=== PATIENT | male | born 1980 | race Two or more races ===

== ENCOUNTER 2019-10-09 16:32 | Emergency (ER) | payer OTHER ==
[2019-10-09 16:37] VITALS: BP 112/82
--- NOTE | 2019-10-09 16:47 | ER Document Report ---
ED Medical Screen (RME) - General Chief Complaint: Dog Bite Stated Complaint: DOG BITE/RIGHT ARM Time Seen by Provider: 10/09/19 16:43 Mode of Arrival: Ambulatory Information source: Patient Notes: 39-year-old male presented to ED for dog bite to the right arm. 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 He states his boss called animal control and animal control and they stated that the dog's shots were not up-to-date. He states that the dog is just a very young maybe 2-month-old pitbull dog. Patient is alert oriented respirations regular nonlabored speaking in full sentences. I have greeted and performed a rapid initial assessment of this patient. A comprehensive ED assessment and evaluation of the patient, analysis of test results and completion of medical decision making process will be conducted by an additional ED providers. - Related Data Allergies/Adverse Reactions: Penicillins Allergy (Verified 10/09/19 16:40) Physical Exam - Vital signs Vitals: Temp Pulse Resp BP Pulse Ox 98.2 F 88 16 112/82 97 10/09/19 16:36 10/09/19 16:36 10/09/19 16:36 10/09/19 16:36 10/09/19 16:36 Course - Vital Signs Vital signs: Temp Pulse Resp BP Pulse Ox 98.2 F 88 16 112/82 97 10/09/19 16:36 10/09/19 16:36 10/09/19 16:36 10/09/19 16:36 10/09/19 16:36
--- NOTE | 2019-10-09 18:25 | ER Document Report ---
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 Wound is on the inner aspect of the upper arm dominant right upper extremity. Dog is a small puppy who is not yet been immunized but the animal has been located by [employer] and will be confined by the partner marketing intern. Bite was unprovoked. Dog does not appear irritable. Patient reports he has had a tetanus booster within the last 5 years. He takes no regular medications. Has history of allergy to penicillin. - Related Data Allergies/Adverse Reactions: Penicillins Allergy (Verified 10/09/19 16:40) Past Medical History - General Information source: Patient - Social History Smoking Status: Never Smoker Chew tobacco use (# tins/day): No Frequency of alcohol use: None Drug Abuse: None Family History: Reviewed & Not Pertinent Patient has homicidal ideation: No Review of Systems - Review of Systems Notes: Constitutional: Negative for fever. HENT: Negative for sore throat. Eyes: Negative for visual changes. Cardiovascular: Negative for chest pain. Respiratory: Negative for shortness of breath. Gastrointestinal: Negative for abdominal pain, vomiting or diarrhea. Genitourinary: Negative for dysuria. Musculoskeletal: Negative for back pain. Skin: Negative for rash. Neurological: Negative for headaches, weakness or numbness. 10 point ROS negative except as marked above and in HPI. Physical Exam - Vital signs Vitals: Temp Pulse Resp BP Pulse Ox 98.2 F 88 16 112/82 97 10/09/19 16:36 10/09/19 16:36 10/09/19 16:36 10/09/19 16:36 10/09/19 16:36 - Notes Notes: GENERAL: Somewhat obese male approximately stated age appearing in no acute distress. SKIN: Good turgor no rashes. HEAD: Normocephalic atraumatic. EYES: PERRLA. EOMI. Conjunctivae and sclerae clear. NECK: Supple. No masses or thyromegaly. No adenopathy. Carotids 2+ without bruits. No JVD. BACK: Symmetrical without tenderness. CHEST: Respirations unlabored. Breath sounds clear and symmetrical. HEART: Regular rhythm. No murmur gallop or rub. ABDOMEN: Soft nontender without masses, organomegaly or rebound. Bowel sounds normally active. No bruits. EXTREMITIES: Patient has 2 small puncture wounds over the distal medial aspect of the right upper arm. No active bleeding. No drainage. Mild bruising surrounding the area with minimal tenderness. No edema. No calf tenderness. Cap refill less than 1.5 seconds. Dorsalis pedis and posterior tibial pulses 3+ and symmetrical. NEUROLOGICAL: Alert and oriented x3. Nonfocal. PSYCHIATRIC: Appropriate affect. Course - Re-evaluation Re-evalutation: 10/09/19 18:22 The wound will be cleaned, irrigated and dressed in a sterile fashion. Ice pack applied. Animal control has been contacted and the animal has been quarantined. Animal control will provide follow-up. He does not appear to warrant rabies vaccine at this time. He may return here as needed. He is going to be started on clindamycin and advised to follow-up with PMD. - Vital Signs Vital signs: Temp Pulse Resp BP Pulse Ox 98.2 F 88 16 112/82 97 10/09/19 16:41 10/09/19 16:36 10/09/19 16:36 10/09/19 16:36 10/09/19 16:36 Discharge - Discharge Clinical Impression: Dog bite of right upper extremity Qualifiers: Encounter type: initial encounter Qualified Code(s): S41.151A - Open bite of right upper arm, initial encounter; W54.0XXA - Bitten by dog, initial encounter Condition: Stable Disposition: HOME, SELF-CARE Additional Instructions: Animal Bites Animal bites are often heavily contaminated with bacteria. In spite of thorough cleansing and proper treatment, these wounds frequently become infected. Bite wounds of the hands are especially prone to complications. Bites are dressed, if possible. Large wounds may require suturing after internal cleansing. Because of infection risk, some large wounds must remain unstitched. Your doctor is trained to advise you on the best treatment for your bite. Call the doctor at once if the wound becomes red, swollen, warm, increasingly painful, or if it begins to drain. Danger signs also include red streaks up the involved extremity, swollen glands in the groin or under the arm, or fever and chills. The risk of rabies from domestic animals is very low. Bats, sick animals, and wild animals may expose you to rabies. The physician, or the health department, will inform you if you will need to receive the rabies vaccine. Clean the wound with mild soap and water daily and apply bacitracin ointment at each time of dressing change. Keep a clean dressing over this. Take Tylenol as needed for pain. You may also apply ice packs as needed for swelling and pain. Follow-up with your primary care doctor return to the emergency department for recheck of this wound and 2 to 3 days. Return here as needed for new or worsening symptoms: Pain that is worsening or unimproved Uncontrolled vomiting High fever or shaking chills Overall worsening Prescriptions: Clindamycin HCl 300 mg PO TID #30 capsule Referrals: [facility] [Primary Care Provider] - Follow up as needed
== END 2019-10-09 18:35 | disposition home or self-care (01) ==
LOC: ER 16:32
DX: S41.151A Open bite of right upper arm, initial encounter (principal); W54.0XXA Bitten by dog, initial encounter; Y99.0 Civilian activity done for income or pay; Z88.0 Allergy status to penicillin; E66.9 Obesity, unspecified
CPT/HCPCS: 99283

== ENCOUNTER 2019-11-06 08:42 | Observation (INO) | payer OTHER ==
--- NOTE | 2019-11-06 09:06 | ER Document Report ---
ED Medical Screen (RME) - General Chief Complaint: Abdominal Pain Stated Complaint: ABDOMINAL PAIN Time Seen by Provider: 11/06/19 09:03 Primary Care Provider: LEONARDO [facility]OPEZ [Primary Care Provider] - Follow up as needed Mode of Arrival: Ambulatory Information source: Patient Notes: 39-year-old presents to ED for complaint of abdominal pain severe for the last several weeks. He states about a week ago he went to an urgent care and they told him to get some mag citrate from the store. He states he did feel better for couple days intimating had diarrhea so he started taking Kaopectate and now is bound up again. He is alert oriented respirations regular nonlabored speaking in full sentences. He states while he was in the he did have some high blood pressure and cholesterol but he does not have those now. He is alert oriented respirations regular and unlabored. I have greeted and performed a rapid initial assessment of this patient. A comprehensive ED assessment and evaluation of the patient, analysis of test results and completion of medical decision making process will be conducted by an additional ED providers. - Related Data Allergies/Adverse Reactions: Penicillins Allergy (Verified 10/09/19 16:40) Doctor's Discharge - Discharge Referrals: LEONARDO LOPEZ [Primary Care Provider] - Follow up as needed
[2019-11-06 09:42] LABS: APPEARANCE,URINE SLIGHTLY-CLOUDY; BILIRUBIN,URINE NEGATIVE (NEGATIVE); COLOR,URINE AMBER; GLUCOSE, URINE NEGATIVE (NEGATIVE); KETONES,URINE 20 mg/dL (NEGATIVE); LEUKOCYTE ESTERASE,URINE NEGATIVE (NEGATIVE); NITRITE,URINE NEGATIVE (NEGATIVE); PROTEIN,URINE 30 mg/dL (NEGATIVE); URINE SPECIFIC GRAVITY 1.034
--- NOTE | 2019-11-06 09:42 | RADIOLOGY REPORT (SQ) ---
EXAM DESCRIPTION: ACUTE ABDOMEN SERIES IMAGES COMPLETED DATE/TIME: 11/06/2019 8:25 am REASON FOR STUDY: Epigastric/abdominal pain constipation/diarrhea COMPARISON: None. NUMBER OF VIEWS: Three views. TECHNIQUE: Frontal chest, supine abdomen and upright/decubitus abdomen radiographic images acquired. LIMITATIONS: None. FINDINGS: CHEST: Lungs clear of infiltrates. FREE AIR: None. No abnormal gas collections. BOWEL GAS PATTERN: Normal stool burden. Nonobstructive pattern. No dilated loops or air fluid levels . CALCIFICATIONS: No suspicious calcifications. HARDWARE: None in the abdomen. SOFT TISSUES: No gross mass or suggestion of organomegaly. BONES: No acute fracture. No worrisome bone lesions. OTHER: No other significant finding. IMPRESSION: No acute cardiopulmonary disease. Nonobstructive bowel gas pattern. TECHNICAL DOCUMENTATION: JOB ID: [id number] 2010 [employer]- All Rights Reserved Reading location - IP/workstation name: [email or web address]
[2019-11-06 09:48] LABS: ABSOLUTE LYMPHOCYTES (AUTO) 1.7 10^3/uL (0.5-4.7); ABSOLUTE MONOCYTES (AUTO) 1.2 10^3/uL (0.1-1.4); ABSOLUTE NEUT (AUTO) 15.5 10^3/uL (1.7-8.2); BASOPHILS % (AUTO) 0.2 % (0-2); EOSINOPHILS % (AUTO) 0.2 % (0-6); HEMATOCRIT 48.7 % (37.9-51.0); HEMOGLOBIN 16.4 g/dL (13.5-17.0); LYMPHOCYTES % (AUTO) 9.3 % (13-45); MEAN CORPUSCULAR HEMOGLOBIN 29.7 pg (27.0-33.4); MEAN CORPUSCULAR HGB CONC 33.8 g/dL (32.0-36.0); MEAN CORPUSCULAR VOLUME 88 fl (80-97); MONOCYTES % (AUTO) 6.3 % (3-13); PLATELET COUNT 291 10^3/uL (150-450); RED BLOOD COUNT 5.54 10^6/uL (4.35-5.55); RED CELL DISTRIBUTION WIDTH 13.2 % (11.5-14.0); TOTAL CELLS COUNTED % (AUTO) 100 %; WHITE BLOOD COUNT 18.5 10^3/uL (4.0-10.5)
[2019-11-06 10:06] LABS: ALKALINE PHOSPHATASE 73 U/L (38-126); ANION GAP 7 (5-19); ASPARTATE AMINO TRANSFERASE 36 U/L (17-59); BILIRUBIN,TOTAL 0.9 mg/dL (0.2-1.3); BLOOD UREA NITROGEN 13 mg/dL (7-20); CARBON DIOXIDE 27 mmol/L (22-30); CHLORIDE 102 mmol/L (98-107); GLUCOSE 115 mg/dL (75-110); TOTAL PROTEIN 6.9 g/dL (6.3-8.2)
[2019-11-06] MEDS ORDERED: NORMAL SALINE 1000 ML 1,000 ML IV ONE ×2 (11:20→13:20)
[2019-11-06] MEDS ORDERED: MORPHINE SULFATE 10 MG/ML INJ IV ONE (11:21)
--- NOTE | 2019-11-06 11:22 | ER Document Report ---
ED GI/ - General Chief Complaint: Abdominal Pain Stated Complaint: ABDOMINAL PAIN Time Seen by Provider: 11/06/19 09:03 Mode of Arrival: Ambulatory Information source: Patient Notes: Patient presents complaining of upper abdominal pain for the past 2 weeks. Patient states that the pain has started to migrate to the left lower quadrant as well. Patient states that he had gone to an urgent care last week for his symptoms and was given mag citrate to treat for possible constipation. Patient states that he has had diarrhea since that visit. Patient states that he has not had any blood in his stool. Patient denies any fever. Patient states pain has started to worsen over the past several days. - HPI Patient complains to provider of: Abdominal pain, Diarrhea. No: Vomiting Onset: Other - 2 weeks Timing/Duration: Persistent Quality of pain: Cramping Pain Level: 4 Location: Other - Upper abdomen, left lower quadrant Associated symptoms: Diarrhea. 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 denies: Fever EENT: No symptoms reported Cardiovascular: No symptoms reported Respiratory: No symptoms reported. denies: Cough, Short of breath Gastrointestinal: Abdominal pain, Diarrhea. denies: Nausea, Vomiting, Black stools, Rectal bleeding Genitourinary: No symptoms reported. denies: Dysuria Male Genitourinary: No symptoms reported Musculoskeletal: No symptoms reported. denies: Back pain Skin: No symptoms reported Hematologic/Lymphatic: No symptoms reported Neurological/Psychological: No symptoms reported Physical Exam - Vital signs Vitals: Temp Pulse Resp BP Pulse Ox 98.0 F 77 20 120/98 H 99 11/06/19 09:00 11/06/19 09:00 11/06/19 09:00 11/06/19 09:00 11/06/19 09:00 - General General appearance: Appears well, Alert In distress: None - HEENT Head: Normocephalic, Atraumatic Eyes: Normal Conjunctiva: Normal Nasal: Normal Mouth/Lips: Normal Neck: Normal, Supple. No: Lymphadenopathy - Respiratory Respiratory status: No respiratory distress Chest status: Nontender Breath sounds: Normal. No: Rales, Rhonchi, Stridor Chest palpation: Normal - Cardiovascular Rhythm: Regular Heart sounds: S1 appreciated, S2 appreciated - Abdominal Inspection: Normal Distension: No distension Bowel sounds: Normal Tenderness: Tender - epigastric. No: Guarding Organomegaly: No organomegaly - Back Back: Normal, Nontender. No: CVA tenderness - Extremities General upper extremity: Normal inspection, Normal ROM General lower extremity: Normal inspection, Normal ROM - Neurological Neuro grossly intact: Yes Cognition: Normal Alisha Coma Scale Eye Opening: Spontaneous [place] Coma Scale Verbal: Oriented [place] Coma Scale Motor: Obeys Commands Alisha Coma Scale Total: 15 - Psychological Associated symptoms: Normal affect, Normal mood - Skin Skin Temperature: Warm Skin Moisture: Dry Skin Color: Normal Course - Re-evaluation Re-evalutation: 11/06/19 13:[address] scan report reviewed, patient with evidence of pancolonic wall thickening with mild stranding worrisome for possible infectious or inflammatory colitis. 11/06/19 13:[address] Infante who advises starting IV Cipro and Flagyl and consulted with hospitalist for admission. Patient reports 40 pound weight loss in July of this year. Patient denies any family history of any type of inflammatory bowel disease. Patient denies any previous history of colitis or IBD. Patient does state that he was on antibiotics after a dog bite last month. Will obtain stool specimen for additional testing. 11/06/19 14:[address] Perera who does agree to accept patient to the medical floor at this time. - Vital Signs Vital signs: Temp Pulse Resp BP Pulse Ox 98.0 F 77 18 117/89 H 100 11/06/19 14:00 11/06/19 14:00 11/06/19 14:00 11/06/19 14:00 11/06/19 14:00 - Laboratory Result Diagrams: 11/06/19 09:30 11/06/19 09:30 Laboratory results interpreted by me: 11/06/19 11/06/19 11/06/19 09:15 09:30 09:30 WBC 18.5 H Lymph % (Auto) 9.3 L Absolute Neuts (auto) 15.5 H Seg Neutrophils % 84.0 H Sodium 135.7 L Glucose 115 H Urine Protein 30 H Urine Ketones 20 H Urine Urobilinogen 2.0 H 11/06/19 14:25 Labs- All tests 24 hr 11/06/19 11/06/19 11/06/19 09:15 09:30 09:30 WBC 18.5 H RBC 5.54 Hgb 16.4 Hct 48.7 MCV 88 MCH 29.7 MCHC 33.8 RDW 13.2 Plt Count 291 Lymph % (Auto) 9.3 L [place] % (Auto) 6.3 Eos % (Auto) 0.2 Baso % (Auto) 0.2 Absolute Neuts (auto) 15.5 H Absolute Lymphs (auto) 1.7 Absolute Monos (auto) 1.2 Absolute Eos (auto) 0.0 Absolute Basos (auto) 0.0 Seg Neutrophils % 84.0 H Sodium 135.7 L Potassium 4.0 Chloride 102 Carbon Dioxide 27 Anion Gap 7 BUN 13 Creatinine 0.84 Est GFR ( Amer) > 60 Est GFR (MDRD) Non-Af > 60 Glucose 115 H Calcium 9.0 Total Bilirubin 0.9 Direct Bilirubin 0.0 Neonat Total Bilirubin Not Reportable Neonat Direct Bilirubin Not Reportable Neonat Indirect Bili Not Reportable AST 36 ALT 46 Alkaline Phosphatase 73 Total Protein 6.9 Albumin 4.0 Lipase Urine Color KYLE Urine Appearance SLIGHTLY-CLOUDY Urine pH 5.0 Ur Specific [place] 1.034 Urine Protein 30 H Urine Glucose (UA) NEGATIVE Urine Ketones 20 H Urine Blood NEGATIVE Urine Nitrite NEGATIVE Urine Bilirubin NEGATIVE Urine Urobilinogen 2.0 H Ur Leukocyte Esterase NEGATIVE Urine WBC (Auto) 2 Urine RBC (Auto) 1 Urine Mucus (Auto) MANY Urine Ascorbic Acid NEGATIVE 11/06/19 09:30 WBC RBC Hgb Hct MCV MCH MCHC RDW Plt Count Lymph % (Auto) [place] % (Auto) Eos % (Auto) Baso % (Auto) Absolute Neuts (auto) Absolute Lymphs (auto) Absolute Monos (auto) Absolute Eos (auto) Absolute Basos (auto) Seg Neutrophils % Sodium Potassium Chloride Carbon Dioxide Anion Gap BUN Creatinine Est GFR ( Amer) Est GFR (MDRD) Non-Af Glucose Calcium Total Bilirubin Direct Bilirubin Neonat Total Bilirubin Neonat Direct Bilirubin Neonat Indirect Bili AST ALT Alkaline Phosphatase Total Protein Albumin Lipase 59.1 Urine Color Urine Appearance Urine pH Ur Specific [place] Urine Protein Urine Glucose (UA) Urine Ketones Urine Blood Urine Nitrite Urine Bilirubin Urine Urobilinogen Ur Leukocyte Esterase Urine WBC (Auto) Urine RBC (Auto) Urine Mucus (Auto) Urine Ascorbic Acid - Diagnostic Test Radiology reviewed: Reports reviewed Discharge - Discharge Clinical Impression: Colitis, Weight loss Abdominal pain Qualifiers: Abdominal location: generalized Qualified Code(s): R10.84 - Generalized abdominal pain Condition: Stable Disposition: ADMITTED INPATIENT Admitting Provider: Dilma (Hospitalist) Unit Admitted: Medical Floor
--- NOTE | 2019-11-06 12:49 | RADIOLOGY REPORT (SQ) ---
EXAM DESCRIPTION: CT ABD/PELVIS WITH IV ONLY IMAGES COMPLETED DATE/TIME: 11/06/2019 12:35 pm REASON FOR STUDY: upper abd pain COMPARISON: None. TECHNIQUE: CT scan of the abdomen and pelvis performed using helical scanning technique with dynamic intravenous contrast injection. No oral contrast. Images reviewed with lung, soft tissue, and bone windows. Reconstructed coronal and sagittal MPR images reviewed. Delayed images for evaluation of the urinary system also acquired. All images stored on PACS. All CT scanners at this facility use dose modulation, iterative reconstruction, and/or weight based d osing when appropriate to reduce radiation dose to as low as reasonably achievable (ALARA). [facility]: Dose Right [facility]: CareDose [facility]: Dose Right [facility]: Teradose 4D [facility]: Zinwave CONTRAST TYPE AND DOSE: Contrast/concentration: Isovue 350.00 mg/ml; Total Contrast Delivered: 88.0 ml; Total Saline Delivered: 70.0 ml RENAL FUNCTION: GFR > 60. RADIATION DOSE: CT Rad equipment meets quality standard of care and radiation dose reduction techniq ues were employed. CTDIvol: 5.7 - 7.9 mGy. DLP: 722 mGy-cm. LIMITATIONS: None. FINDINGS: LOWER CHEST: No abnormality LIVER: The morphology of the liver is noncirrhotic. The portal veins are patent. There is no hepati c mass. SPLEEN: No splenomegaly or splenic mass. There is a 7 mm splenule anterior to the spleen. PANCREAS: No acute abnormality of the pancreas. GALLBLADDER: No abnormality that is apparent on CT. ADRENAL GLANDS: No mass or asymmetry. RIGHT KIDNEY AND URETER: No solid masses. No calcifications. No hydronephrosis or hydroureter. LEFT KIDNEY AND URETER: No solid masses. No calcifications. No hydronephrosis or hydroureter. AORTA AND VESSELS: No aneurysm or dissection of the abdominal aorta. RETROPERITONEUM: No retroperitoneal adenopathy, hemorrhage or mass. BOWEL AND PERITONEAL CAVITY: Pancolonic wall thickening associated with mild stranding of the pericol onic fat and engorgement of the vasa recta. There is no obstruction, pneumatosis free intraperitonea l fluid or mesenteric/ omental inflammation. APPENDIX: Normal. PELVIS: No abnormality. ABDOMINAL WALL: No mass or hernia. BONES: No fracture or osseous lesion. OTHER: No other finding. IMPRESSION: 1. Muse colonic wall thickening associated with mild stranding of the pericolonic fat and engorgement of the vasa recta. The findings is nonspecific and could represent an infectious, infla mmatory or ischemic colitis. 2. No other intra-abdominal abnormality. TECHNICAL DOCUMENTATION: JOB ID: [id number] Quality ID # [id number]: Final reports with documentation of one or more dose reduction techniques (e.g., Au tomated exposure control, adjustment of the mA and/or kV according to patient size, use of iterative reconstruction technique) 2010 [employer]- All Rights Reserved Reading location - IP/workstation name: [email or web address]-
[2019-11-06] MEDS ORDERED: CIPROFLOXACIN 400 MG/D5W RTU 400 MG/200 ML RTUPB IV ONE (13:31)
--- NOTE | 2019-11-06 13:52 | ER Document Report ---
Doctor's Note Notes: 11/06/19 13:49 I was requested to see this patient by the midlevel provider. 39-year-old male with several weeks history of diffuse abdominal cramping and loss of appetite. He is also had some watery diarrhea with no blood or mucus reported. No travel outside the area. No fever or chills. He has lost almost 40 pounds of weight since 3 months ago. He denies any family history of GI cancer or inflammatory bowel disease. He notes that about 1 month ago he briefly took Augmentin after he was bitten by dog. Patient is afebrile hemodynamically stable. He is mildly tender over the epigastrium and left upper and left lower quadrants without masses or rebound. White count is 18,000. CT shows diffuse colitis. I recommend consideration of admission, stool culture. Stool for C. difficile should also be obtained. He reports penicillin allergy and is therefore been given Cipro and Flagyl IV. Consultation with GI or general surgery will also be needed for colonoscopy.
[2019-11-06] MEDS ORDERED: METRONIDAZOLE 500 MG/NS RTU 500 MG/100 ML RTUPB IV ONE (14:00)
[2019-11-06] MEDS ORDERED: ACETAMINOPHEN 325 MG TABLET PO PRN (15:32)
[2019-11-06] MEDS ORDERED: PROMETHAZINE HCL INJ 25 MG/1 ML VIAL IV PRN (15:32)
[2019-11-06] MEDS ORDERED: MAG HYDROX/AL HYDROX/SIMETH SUSP 30 ML UDCUP PO PRN (15:32)
[2019-11-06] MEDS ORDERED: TEMAZEPAM 15 MG CAPSULE PO PRN (15:32)
[2019-11-06] MEDS ORDERED: OXYCODONE-ACETAMINOPHEN 5-325 MG TABLET PO PRN (15:32)
--- NOTE | 2019-11-06 15:48 | PDOC H&P ---
History of Present Illness Admission Date/PCP: 11/06/19 15:06 [facility] Patient complains of: Patient has been experiencing crampy abdominal pain. He has had diarrhea for 2 weeks and experienced unintentional weight loss. History of Present Illness: ERNIE SHORT is a 39 year old male with no significant past medical history who presents with abdominal pain and diarrhea. The patient is otherwise healthy. 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 He did receive a dog bite approximately 4 weeks ago. He was given clindamycin 300 mg and was experiencing some stomach discomfort and he did stop the medication early. There is no adverse effects and his wound is healed completely. Approximately 2 weeks ago he began having some abdominal discomfort. He went to a walk-in clinic and was told that it was constipation. He was given some laxatives and sent home. He states that his bowels did in fact respond to laxatives however for the last 2 weeks he has been having ongoing crampy pain and profuse diarrhea. It was originally normal in color and now is a greenish color and basically liquid. He does not think he has been drinking enough water. He denies having fever or chills. He did reports that in addition to the cramping he was having diaphoresis episodes. He did not report that there was any blood in his stool but he was having urgency. He does report weight loss. 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 He did not feel poorly at all until 2 weeks ago. In the emergency department he was afebrile with normal blood pressure. Normal oxygen saturation on room air. He is not tachycardic. White blood cell count is elevated with a left shift. Serum chemistries reveal serum sodium just under the lower limit of normal. No other clinically significant abnormalities. He is having ongoing liquid stool and crampy pain. He is experiencing abdominal tenderness mostly focused in the epigastric area. Imaging reveals pancolonic wall thickening with mild stranding in the pericolonic fat. Stool has been ordered for C. difficile, Gram stain and culture as well as white blood cells. He has received a dose of metronidazole and ciprofloxacin. He will be admitted to the hospitalist service. He will receive IV fluids. In addition to continuing the ciprofloxacin and metronidazole I have added oral vancomycin until results of the C. difficile tests are available. If these are negative I will discontinue the vancomycin. At this point I do not feel there is an acute need for surgical evaluation. Past Medical History Past Medical History: No significant past medical history except the dog bite Traumatic Medical History: Reports: Other - Dog bite 1 month ago Past Surgical History Past Surgical History: Reports: None Social History Information Source: Patient, [facility] Records Lives with: Family Smoking Status: Former Smoker - Stop smoking when discharged from the [facility] in 2017 Electronic Cigarette use?: No Frequency of Alcohol Use: None Hx Recreational Drug Use: No Hx Prescription Drug Abuse: No - Advance Directive Resuscitation Status: Full Code Surrogate healthcare decision maker:: The patient's is the medical decision maker in the event that the patient is incapacitated Family History Family History: Reviewed & Not Pertinent, DM Parental Family History Reviewed: Yes Children Family History Reviewed: Yes Sibling(s) Family History Reviewed.: Yes Medication/Allergy Home Medications: Bismuth Subsalicylate [Kaopectate] 262 mg PO BIDP PRN 11/06/19 Allergies/Adverse Reactions: Penicillins Allergy (Verified 11/06/19 09:05) Review of Systems All systems: reviewed and no additional remarkable complaints except as stated Constitutional: PRESENT: anorexia - Decreased appetite, other - Diaphoretic episodes Gastrointestinal: PRESENT: abdominal pain, diarrhea Physical Exam Vital Signs: Temp Pulse Resp BP Pulse Ox 98.0 F 77 20 120/98 H 99 11/06/19 09:00 11/06/19 09:00 11/06/19 09:00 11/06/19 09:00 11/06/19 09:00 Intake & Output 11/05/19 11/06/19 11/07/19 06:59 06:59 06:59 Intake Total 2100 Balance 2100 Weight 77.2 kg General appearance: PRESENT: cooperative, mild distress - Mild to moderate distress, well-developed, well-nourished Head exam: PRESENT: atraumatic, normocephalic Eye exam: PRESENT: conjunctiva pink, EOMI, PERRLA. ABSENT: nystagmus, per iorbital swelling, scleral icterus Ear exam: PRESENT: normal external ear exam. ABSENT: bleeding, drainage Mouth exam: PRESENT: dry mucosa, tongue midline Teeth exam: ABSENT: poor dentation Throat exam: ABSENT: tonsillar erythema, tonsillar exudate Neck exam: PRESENT: full ROM. ABSENT: carotid bruit, JVD, lymphadenopathy Respiratory exam: PRESENT: clear to auscultation ashok, symmetrical, unlabored. ABSENT: accessory muscle use, prolonged expiratory phas, rales, rhonchi, tachypnea, wheezes Cardiovascular exam: PRESENT: RRR, +S1, +S2. ABSENT: diastolic murmur, irregular rhythm, systolic murmur, tachycardia Pulses: PRESENT: normal radial pulses, normal dorsalis pedis pul GI/Abdominal exam: PRESENT: distended, guarding, hypoactive bowel sounds, soft, tenderness - Mild tenderness in the upper abdomen to the epigastric area. ABSENT: mass Rectal exam: PRESENT: deferred Gentrourinary exam: ABSENT: indwelling catheter Extremities exam: PRESENT: full ROM. ABSENT: joint swelling, pedal edema Musculoskeletal exam: PRESENT: ambulatory, full ROM, normal inspection. ABSENT: deformity Neurological exam: PRESENT: alert, awake, oriented to person, oriented to place, oriented to time, oriented to situation, CN II-XII grossly intact. ABSENT: a ltered, motor sensory deficit Psychiatric exam: PRESENT: appropriate affect. ABSENT: agitated, anxious Focused psych exam: ABSENT: delusional, paranoid, restlessness Skin exam: PRESENT: normal color, warm. ABSENT: cyanosis, erythema, rash Results Laboratory Results: 11/06/19 09:30 11/06/19 09:30 11/06/19 11/06/19 11/06/19 09:15 09:30 09:30 WBC 18.5 H RBC 5.54 Hgb 16.4 Hct 48.7 MCV 88 MCH 29.7 MCHC 33.8 RDW 13.2 Plt Count 291 Seg Neutrophils % 84.0 H Sodium 135.7 L Potassium 4.0 Chloride 102 Carbon Dioxide 27 Anion Gap 7 BUN 13 Creatinine 0.84 Est GFR ( Amer) > 60 Glucose 115 H Calcium 9.0 Total Bilirubin 0.9 AST 36 Alkaline Phosphatase 73 Total Protein 6.9 Albumin 4.0 Lipase Urine Color KYLE Urine Appearance SLIGHTLY-CLOUDY Urine pH 5.0 Ur Specific [place] 1.034 Urine Protein 30 H Urine Glucose (UA) NEGATIVE Urine Ketones 20 H Urine Blood NEGATIVE Urine Nitrite NEGATIVE Ur Leukocyte Esterase NEGATIVE Urine WBC (Auto) 2 Urine RBC (Auto) 1 11/06/19 09:30 WBC RBC Hgb Hct MCV MCH MCHC RDW Plt Count Seg Neutrophils % Sodium Potassium Chloride Carbon Dioxide Anion Gap BUN Creatinine Est GFR ( Amer) Glucose Calcium Total Bilirubin AST Alkaline Phosphatase Total Protein Albumin Lipase 59.1 Urine Color Urine Appearance Urine pH Ur Specific [place] Urine Protein Urine Glucose (UA) Urine Ketones Urine Blood Urine Nitrite Ur Leukocyte Esterase Urine WBC (Auto) Urine RBC (Auto) Impressions: Acute Abdomen Series 11/06/19 09:06 IMPRESSION: No acute cardiopulmonary disease. Nonobstructive bowel gas pattern. Abdomen/Pelvis CT 11/06/19 11:20 IMPRESSION: 1. Muse colonic wall thickening associated with mild stranding of the pericolonic fat and engorgement of the vasa recta. The findings is nonspecific and could represent an infectious, inflammatory or ischemic colitis. 2. No other intra-abdominal abnormality. Assessment and Plan - Diagnosis (1) Colitis Is this a current diagnosis for this admission?: Yes Plan: 11/06/2019 The sequence of events with oral antibiotics approximately 2 weeks ago which suggest a sequela of the antibiotics such as C. difficile. There is no family history of inflammatory bowel disease. If this were severe ulcerative colitis or Crohn's disease I would expect blood in the stool. It certainly could be a n onspecific infectious colitis however he does not report eating any suspicious foods or uncooked meals. He is afebrile but he does report diaphoretic episodes. I will continue the IV ciprofloxacin and metronidazole started in the emergency department. Blood and stool cultures are pending. I have added oral vancomycin until the result of the C. difficile testing is available. If this is negative I will discontinue the vancomycin. I have ordered probiotics for the patient. He will also be on IV fluids to compensate for the watery stool. There is currently no evidence by laboratory study of severe dehydration. (2) Abdominal pain Qualifiers: Abdominal location: generalized Qualified Code(s): R10.84 - Generalized abd ominal pain Is this a current diagnosis for this admission?: Yes Plan: 11/06/2019 There was spotty tenderness over the entire abdomen however the most tender area was in the central area of the abdomen to the epigastrium. Bowel sounds are hypoactive at the time of this encounter. With the antibiotics and IV fluids I believe the pain will subside. He does have several analgesic medications available if needed. I have also ordered Bentyl to help with any crampy abdominal pain. (3) Leukocytosis Qualifiers: Leukocytosis type: unspecified Qualified Code(s): D72.829 - Elevated white blood cell count, unspecified Is this a current diagnosis for this admission?: Yes Plan: 11/06/2019 The white blood cell count was 18,000. This is secondary to the inflammatory/infectious process in the colon. This will improve with antibiotics and IV fluids. We will continue to monitor. (4) Weight loss Is this a current diagnosis for this admission?: Yes Plan: 11/06/2019 The patient reports a 40 pound weight loss over the last 5 months or so. 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 I am sure he is lost weight over the last 2 weeks with decreased appetite and ongoing diarrhea. We will check daily weights. The entire 40 pounds is not related to an unintentional worrisome weight loss. (5) Diarrhea Qualifiers: Diarrhea type: infectious Qualified Code(s): A09 - Infectious gastroenteritis and colitis, unspecified Is this a current diagnosis for this admission?: Yes Plan: 11/06/2019 If this is an infectious diarrhea such as a pseudomembranous colitis from C. difficile we would not want to use any antidiarrheal agents. The Bentyl for crampy pain would be acceptable. We should have the results of your stool studies including the C. difficile within the next 12 hours. For the time being we will provide IV fluids and supportive care. (6) Hyperglycemia Is this a current diagnosis for this admission?: Yes Plan: 11/06/2019 The serum glucose is slightly above the upper limit normal. This is clinically insignificant. There is no acute treatment necessary. We will monitor his serum chemistries and intervene if necessary. (7) Hyponatremia Is this a current diagnosis for this admission?: Yes Plan: 11/06/2019 The serum sodium is minimally below the lower limit normal. This is likely from the diarrhea. It is not clinically significant. Will monitor with the laboratory studies. No acute treatment necessary as he will be getting IV fluids. 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
[2019-11-06] MEDS: RINGERS SOLUTION,LACTATED 1,000 ML IV PRN (17:15)
[2019-11-06] MEDS: LACTOBACILLUS ACIDOPHILUS 250 MG TAB PO SCH (18:18)
[2019-11-06] MEDS: METRONIDAZOLE 500 MG/NS RTU 500 MG/100 ML RTUPB IV SCH ×2 (18:18→23:53)
[2019-11-06] MEDS: VANCOMYCIN HCL INJ 500 MG VIAL PO SCH ×2 (18:23→21:41)
[2019-11-06] MEDS: KETOROLAC TROMETHAMINE INJ/PF 30 MG/1 ML SDV IV PRN (19:51)
[2019-11-06] MEDS: DICYCLOMINE HCL 20 MG TABLET PO PRN (19:51)
[2019-11-06 20:25] LABS: C DIFFICILE GDH POSITIVE (NEGATIVE)
[2019-11-06] MEDS: HEPARIN SOD (PORCINE) 5,000 UNIT/ML 1 ML VIAL SUBCUT SCH (21:40)
[2019-11-06] MEDS: FAMOTIDINE 20 MG TABLET PO SCH (21:40)
[2019-11-06] MEDS ORDERED: CIPROFLOXACIN 400 MG/D5W RTU 400 MG/200 ML RTUPB IV SCH (22:00)
[2019-11-07] MEDS: VANCOMYCIN HCL INJ 500 MG VIAL PO SCH ×4 (03:50→22:36)
[2019-11-07] MEDS: RINGERS SOLUTION,LACTATED 1,000 ML IV PRN ×2 (04:21→15:16)
[2019-11-07] MEDS: HEPARIN SOD (PORCINE) 5,000 UNIT/ML 1 ML VIAL SUBCUT SCH ×3 (05:03→22:36)
[2019-11-07] MEDS: KETOROLAC TROMETHAMINE INJ/PF 30 MG/1 ML SDV IV PRN (05:03)
[2019-11-07] MEDS: DICYCLOMINE HCL 20 MG TABLET PO PRN ×2 (05:03→19:36)
[2019-11-07] MEDS: METRONIDAZOLE 500 MG/NS RTU 500 MG/100 ML RTUPB IV SCH (05:04)
[2019-11-07 07:33] LABS: ABSOLUTE BASOPHILS # (AUTO) 0.1 10^3/uL (0.0-0.2); ABSOLUTE EOSINOPHILS # (AUTO) 0.2 10^3/uL (0.0-0.6); ABSOLUTE LYMPHOCYTES (AUTO) 2.2 10^3/uL (0.5-4.7); ABSOLUTE MONOCYTES (AUTO) 0.8 10^3/uL (0.1-1.4); ABSOLUTE NEUT (AUTO) 11.4 10^3/uL (1.7-8.2); BASOPHILS % (AUTO) 0.6 % (0-2); EOSINOPHILS % (AUTO) 1.5 % (0-6); HEMATOCRIT 41.9 % (37.9-51.0); HEMOGLOBIN 14.5 g/dL (13.5-17.0); LYMPHOCYTES % (AUTO) 15.1 % (13-45); MEAN CORPUSCULAR HGB CONC 34.7 g/dL (32.0-36.0); MEAN CORPUSCULAR VOLUME 87 fl (80-97); MONOCYTES % (AUTO) 5.3 % (3-13); PLATELET COUNT 223 10^3/uL (150-450); RED BLOOD COUNT 4.84 10^6/uL (4.35-5.55); RED CELL DISTRIBUTION WIDTH 13.4 % (11.5-14.0); SEGMENTED NEUTROPHILS % (AUTO) 77.5 % (42-78); TOTAL CELLS COUNTED % (AUTO) 100 %; WHITE BLOOD COUNT 14.7 10^3/uL (4.0-10.5)
[2019-11-07 07:44] LABS: ANION GAP 6 (5-19); BLOOD UREA NITROGEN 7 mg/dL (7-20); CALCIUM 7.9 mg/dL (8.4-10.2); CARBON DIOXIDE 22 mmol/L (22-30); CHLORIDE 107 mmol/L (98-107); GLUCOSE 90 mg/dL (75-110); POTASSIUM 3.5 mmol/L (3.6-5.0)
[2019-11-07 08:10] LABS: ERYTHROCYTE SEDIMENTATION RATE 8 mm/hr (0-15)
--- NOTE | 2019-11-07 09:25 | PDOC PROGRESS REPORT ---
Subjective Progress Note for:: 11/07/19 Subjective:: Starting to feel better. C. difficile testing was positive. He is still having watery diarrhea. Reason For Visit: PANCOLITIS,INFECTIOUS COLITIS,ABDOMINAL PAIN, Physical Exam Vital Signs: Temp Pulse Resp BP Pulse Ox 97.9 F 69 17 119/67 99 11/07/19 07:58 11/07/19 07:58 11/07/19 07:58 11/07/19 07:58 11/07/19 07:58 Intake & Output 11/06/19 11/07/19 11/08/19 06:59 06:59 06:59 Intake Total 4398 Balance 4398 Weight 78.8 kg General appearance: PRESENT: no acute distress, cooperative, well-developed, we ll-nourished Head exam: PRESENT: atraumatic, normocephalic Eye exam: PRESENT: conjunctiva pink. ABSENT: scleral icterus Mouth exam: PRESENT: moist, neck supple, tongue midline Respiratory exam: PRESENT: clear to auscultation ashok, symmetrical, unlabored. ABSENT: prolonged expiratory phas, rales, rhonchi, tachypnea, wheezes Cardiovascular exam: PRESENT: RRR, +S1, +S2. ABSENT: diastolic murmur, irregular rhythm, systolic murmur, tachycardia GI/Abdominal exam: PRESENT: normal bowel sounds, soft, tenderness - Still slightly tender in the midline area above the umbilicus. ABSENT: distended, guarding, mass Rectal exam: PRESENT: deferred Gentrourinary exam: ABSENT: indwelling catheter Extremities exam: ABSENT: pedal edema Musculoskeletal exam: PRESENT: ambulatory, full ROM, normal inspection. ABSENT: deformity Neurological exam: PRESENT: alert, awake, oriented to person, oriented to place, oriented to time, oriented to situation, CN II-XII grossly intact. ABSENT: altered, motor sensory deficit Psychiatric exam: PRESENT: appropriate affect, normal mood. ABSENT: agitated, anxious Focused psych exam: ABSENT: delusional, paranoid, restlessness Skin exam: PRESENT: dry, normal color, warm. ABSENT: rash Results Laboratory Results: 11/07/19 06:46 11/07/19 06:46 11/06/19 11/06/19 11/06/19 09:15 09:30 09:30 WBC 18.5 H RBC 5.54 Hgb 16.4 Hct 48.7 MCV 88 MCH 29.7 MCHC 33.8 RDW 13.2 Plt Count 291 Seg Neutrophils % 84.0 H Sodium 135.7 L Potassium 4.0 Chloride 102 Carbon Dioxide 27 Anion Gap 7 BUN 13 Creatinine 0.84 Est GFR ( Amer) > 60 Glucose 115 H Calcium 9.0 Magnesium Total Bilirubin 0.9 AST 36 Alkaline Phosphatase 73 Total Protein 6.9 Albumin 4.0 Lipase Urine Color KYLE Urine Appearance SLIGHTLY-CLOUDY Urine pH 5.0 Ur Specific [place] 1.034 Urine Protein 30 H Urine Glucose (UA) NEGATIVE Urine Ketones 20 H Urine Blood NEGATIVE Urine Nitrite NEGATIVE Ur Leukocyte Esterase NEGATIVE Urine WBC (Auto) 2 Urine RBC (Auto) 1 Stool for White Cells 11/06/19 11/06/19 11/07/19 09:30 16:14 06:46 WBC 14.7 H RBC 4.84 Hgb 14.5 Hct 41.9 MCV 87 MCH 30.0 MCHC 34.7 RDW 13.4 Plt Count 223 Seg Neutrophils % 77.5 Sodium Potassium Chloride Carbon Dioxide Anion Gap BUN Creatinine Est GFR ( Amer) Glucose Calcium Magnesium Total Bilirubin AST Alkaline Phosphatase Total Protein Albumin Lipase 59.1 Urine Color Urine Appearance Urine pH Ur Specific [place] Urine Protein Urine Glucose (UA) Urine Ketones Urine Blood Urine Nitrite Ur Leukocyte Esterase Urine WBC (Auto) Urine RBC (Auto) Stool for White Cells MANY H 11/07/19 06:46 WBC RBC Hgb Hct MCV MCH MCHC RDW Plt Count Seg Neutrophils % Sodium 135.0 L Potassium 3.5 L Chloride 107 Carbon Dioxide 22 Anion Gap 6 BUN 7 Creatinine 0.62 Est GFR ( Amer) > 60 Glucose 90 Calcium 7.9 L Magnesium 1.9 Total Bilirubin AST Alkaline Phosphatase Total Protein Albumin Lipase Urine Color Urine Appearance Urine pH Ur Specific [place] Urine Protein Urine Glucose (UA) Urine Ketones Urine Blood Urine Nitrite Ur Leukocyte Esterase Urine WBC (Auto) Urine RBC (Auto) Stool for White Cells Impressions: Acute Abdomen Series 11/06/19 09:06 IMPRESSION: No acute cardiopulmonary disease. Nonobstructive bowel gas pattern. Abdomen/Pelvis CT 11/06/19 11:20 IMPRESSION: 1. Muse colonic wall thickening associated with mild stranding of the pericolonic fat and engorgement of the vasa recta. The findings is nonspecific and could represent an infectious, inflammatory or ischemic colitis. 2. No other intra-abdominal abnormality. Assessment and Plan - Diagnosis (1) C. difficile colitis Is this a current diagnosis for this admission?: Yes Plan: 11/07/2019 C. difficile confirmed. Continue oral vancomycin. DC Cipro and Flagyl. Continue probiotics. (2) Colitis Is this a current diagnosis for this admission?: Yes Plan: 11/06/2019 The sequence of events with oral antibiotics approximately 2 weeks ago which suggest a sequela of the antibiotics such as C. difficile. There is no family history of inflammatory bowel disease. If this were severe ulcerative colitis or Crohn's disease I would expect blood in the stool. It certainly could be a nonspecific infectious colitis however he does not report eating any suspicious foods or uncooked meals. He is afebrile but he does report diaphoretic episodes. I will continue the IV ciprofloxacin and metronidazole started in the emergency department. Blood and stool cultures are pending. I have added oral vancomycin until the result of the C. difficile testing is available. If this is negative I will discontinue the vancomycin. I have ordered probiotics for the patient. He will also be on IV fluids to compensate for the watery stool. There is currently no evidence by laboratory study of severe dehydration. 11/07/2019 Secondary to C. difficile as noted above (3) Abdominal pain Qualifiers: Abdominal location: generalized Qualified Code(s): R10.84 - Generalized abdominal pain Is this a current diagnosis for this admission?: Yes Plan: 11/06/2019 There was spotty tenderness over the entire abdomen however the most tender area was in the central area of the abdomen to the epigastrium. Bowel sounds are hypoactive at the time of this encounter. With the antibiotics and IV fluids I believe the pain will subside. He does have several analgesic medications available if needed. I have also ordered Bentyl to help with any crampy abdominal pain. 11/07/2019 Slowly improving (4) Leukocytosis Qualifiers: Leukocytosis type: unspecified Qualified Code(s): D72.829 - Elevated white blood cell count, unspecified Is this a current diagnosis for this admission?: Yes Plan: 11/06/2019 The white blood cell count was 18,000. This is secondary to the inflammatory/infectious process in the colon. This will improve with antibiotics and IV fluids. We will continue to monitor. 11/07/2019 Better but not yet normal. White blood cell count should normalize with ongoing antibiotic therapy. (5) Weight loss Is this a current diagnosis for this admission?: Yes Plan: 11/06/2019 The patient reports a 40 pound weight loss over the last 5 months or so. 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 I am sure he is lost weight over the last 2 weeks with decreased appetite and ongoing diarrhea. We will check daily weights. The entire 40 pounds is not related to an unintentional worrisome weight loss. 11/07/2019 A small fraction of the weight loss is likely attributed to the colitis. The majority is likely related to improved lifestyle and increased exercise. (6) Diarrhea Qualifiers: Diarrhea type: infectious Qualified Code(s): A09 - Infectious gastroenteritis and colitis, unspecified Is this a current diagnosis for this admission?: Yes Plan: 11/06/2019 If this is an infectious diarrhea such as a pseudomembranous colitis from C. difficile we would not want to use any antidiarrheal agents. The Bentyl for crampy pain would be acceptable. We should have the results of your stool studies including the C. difficile within the next 12 hours. For the time being we will provide IV fluids and supportive care. 11/07/2019 Explained the role of the colon and motor absorption. We discussed adequate osmel er intake after discharge. No antidiarrheal medications at this time. Diarrhea will improve over time. I did advance him to a regular diet. (7) Hyperglycemia Is this a current diagnosis for this admission?: Yes Plan: 11/06/2019 The serum glucose is slightly above the upper limit normal. This is clinically insignificant. There is no acute treatment necessary. We will monitor his serum chemistries and intervene if necessary. 11/07/2019 Glucose is normal (8) Hyponatremia Is this a current diagnosis for this admission?: Yes Plan: 11/06/2019 The serum sodium is minimally below the lower limit normal. This is likely from the diarrhea. It is not clinically significant. Will monitor with the laboratory studies. No acute treatment necessary as he will be getting IV fluids. 11/07/2019 Still just below the lower limit normal. Stable. Should correct when diarrhea stops. (9) Hypokalemia Is this a current diagnosis for this admission?: Yes Plan: 11/07/2019 Likely from the diarrhea. Low-dose potassium supplement initiated. When the diarrhea stops he will no longer need the potassium supplement. - Time Time Spent with patient: 15-24 minutes Medications reviewed and adjusted accordingly: Yes Anticipated discharge: Home Within: within 72 hours
[2019-11-07] MEDS: LACTOBACILLUS ACIDOPHILUS 250 MG TAB PO SCH ×2 (11:00→17:58)
[2019-11-07] MEDS: POTASSIUM CHLORIDE 10 MEQ TABLET.ER PO SCH (11:00)
[2019-11-07] MEDS: FAMOTIDINE 20 MG TABLET PO SCH ×2 (11:01→22:37)
[2019-11-08] MEDS: VANCOMYCIN HCL INJ 500 MG VIAL PO SCH ×4 (05:33→21:49)
[2019-11-08] MEDS: RINGERS SOLUTION,LACTATED 1,000 ML IV PRN (05:34)
[2019-11-08] MEDS: HEPARIN SOD (PORCINE) 5,000 UNIT/ML 1 ML VIAL SUBCUT SCH ×3 (05:34→21:49)
[2019-11-08 06:44] LABS: BLOOD UREA NITROGEN 8 mg/dL (7-20); CALCIUM 8.1 mg/dL (8.4-10.2); CHLORIDE 108 mmol/L (98-107); GLUCOSE 93 mg/dL (75-110); POTASSIUM 3.9 mmol/L (3.6-5.0)
[2019-11-08 06:49] LABS: ANION GAP 5 (5-19); CARBON DIOXIDE 25 mmol/L (22-30)
[2019-11-08] MEDS: FAMOTIDINE 20 MG TABLET PO SCH ×2 (09:39→21:50)
[2019-11-08] MEDS: LACTOBACILLUS ACIDOPHILUS 250 MG TAB PO SCH ×2 (09:39→17:15)
[2019-11-08] MEDS: POTASSIUM CHLORIDE 10 MEQ TABLET.ER PO SCH (09:39)
--- NOTE | 2019-11-08 11:37 | PDOC PROGRESS REPORT ---
Subjective Progress Note for:: 11/08/19 Subjective:: The patient continues to feel better. Has only had one loose bowel movement so far today. His pain is improving. Reason For Visit: PANCOLITIS,INFECTIOUS COLITIS,ABDOMINAL PAIN, Physical Exam Vital Signs: Temp Pulse Resp BP Pulse Ox 98.0 F 58 L 17 112/68 99 11/08/19 08:00 11/08/19 08:00 11/08/19 08:00 11/08/19 08:00 11/08/19 08:00 Intake & Output 11/07/19 11/08/19 11/09/19 06:59 06:59 06:59 Intake Total 4398 2335 Balance 4398 2335 Weight 78.8 kg 78.8 kg General appearance: PRESENT: no acute distress, cooperative, well-developed Head exam: PRESENT: atraumatic, normocephalic Eye exam: PRESENT: conjunctiva pink. ABSENT: scleral icterus Mouth exam: PRESENT: moist, tongue midline Respiratory exam: PRESENT: clear to auscultation ashok, symmetrical, unlabored. ABSENT: prolonged expiratory phas, rales, rhonchi, tachypnea, wheezes Cardiovascular exam: PRESENT: RRR, +S1, +S2. ABSENT: diastolic murmur, irregular rhythm, systolic murmur, tachycardia GI/Abdominal exam: PRESENT: normal bowel sounds, soft. ABSENT: distended, guarding, tenderness Rectal exam: PRESENT: deferred Gentrourinary exam: ABSENT: indwelling catheter Extremities exam: ABSENT: pedal edema Musculoskeletal exam: PRESENT: ambulatory, normal inspection. ABSENT: deformity, dislocation Neurological exam: PRESENT: alert, awake, oriented to person, oriented to place, oriented to time, oriented to situation, CN II-XII grossly intact. ABSENT: altered, motor sensory deficit Psychiatric exam: PRESENT: appropriate affect, normal mood. ABSENT: agitated, anxious Focused psych exam: ABSENT: delusional, paranoid, restlessness Skin exam: PRESENT: dry, normal color, warm. ABSENT: rash Results Laboratory Results: 11/07/19 06:46 11/08/19 05:34 11/08/19 05:34 Sodium 138.1 Potassium 3.9 Chloride 108 H Carbon Dioxide 25 Anion Gap 5 BUN 8 Creatinine 0.69 Est GFR ( Amer) > 60 Glucose 93 Calcium 8.1 L Magnesium 2.1 Impressions: Acute Abdomen Series 11/06/19 09:06 IMPRESSION: No acute cardiopulmonary disease. Nonobstructive bowel gas pattern. Abdomen/Pelvis CT 11/06/19 11:20 IMPRESSION: 1. Muse colonic wall thickening associated with mild stranding of the pericolonic fat and engorgement of the vasa recta. The findings is nonspecific and could represent an infectious, inflammatory or ischemic colitis. 2. No other intra-abdominal abnormality. Assessment and Plan - Diagnosis (1) C. difficile colitis Is this a current diagnosis for this admission?: Yes Plan: 11/07/2019 C. difficile confirmed. Continue oral vancomycin. DC Cipro and Flagyl. Continue probiotics. 11/08/2019 The patient is improving. I told him that if he continues to do this well I will discharge him home tomorrow on oral vancomycin. He appears to be tolerating his diet as well. (2) Colitis Is this a current diagnosis for this admission?: Yes Plan: 11/06/2019 The sequence of events with oral antibiotics approximately 2 weeks ago which suggest a sequela of the antibiotics such as C. difficile. There is no family history of inflammatory bowel disease. If this were severe ulcerative colitis or Crohn's disease I would expect blood in the stool. It certainly could be a nonspecific infectious colitis however he does not report eating any suspicious foods or uncooked meals. He is afebrile but he does report diaphoretic episodes. I will continue the IV ciprofloxacin and metronidazole started in the emergency department. Blood and stool cultures are pending. I have added oral vancomycin until the result of the C. difficile testing is available. If this is negative I will discontinue the vancomycin. I have ordered probiotics for the patient. He will also be on IV fluids to compensate for the watery stool. There is currently no evidence by laboratory study of severe dehydration. 11/07/2019 Secondary to C. difficile as noted above (3) Abdominal pain Qualifiers: Abdominal location: generalized Qualified Code(s): R10.84 - Generalized abdominal pain Is this a current diagnosis for this admission?: Yes Plan: 11/06/2019 There was spotty tenderness over the entire abdomen however the most tender area was in the central area of the abdomen to the epigastrium. Bowel sounds are hypoactive at the time of this encounter. With the antibiotics and IV fluids I believe the pain will subside. He does have several analgesic medications available if needed. I have also ordered Bentyl to help with any crampy abd ominal pain. 11/07/2019 Slowly improving 11/08/2019 Nursing reports that the patient is benefiting from Bentyl. His pain in general is decreasing. Continue as needed medications. (4) Leukocytosis Qualifiers: Leukocytosis type: unspecified Qualified Code(s): D72.829 - Elevated white blood cell count, unspecified Is this a current diagnosis for this admission?: Yes Plan: 11/06/2019 The white blood cell count was 18,000. This is secondary to the inflammatory/infectious process in the colon. This will improve with antibiotics and IV fluids. We will continue to monitor. 11/07/2019 Better but not yet normal. White blood cell count should normalize with ongoing antibiotic therapy. 11/08/2019 Improved. At this point I will not repeat the CBC as the patient is clearly improving. (5) Weight loss Is this a current diagnosis for this admission?: Yes Plan: 11/06/2019 The patient reports a 40 pound weight loss over the last 5 months or so. 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 I am sure he is lost weight over the last 2 weeks with decreased appetite and ongoing diarrhea. We will check daily weights. The entire 40 pounds is not related to an unintentional worrisome weight loss. 11/07/2019 A small fraction of the weight loss is likely attributed to the colitis. The majority is likely related to improved lifestyle and increased exercise. (6) Diarrhea Qualifiers: Diarrhea type: infectious Qualified Code(s): A09 - Infectious gastroenteritis and colitis, unspecified Is this a current diagnosis for this admission?: Yes Plan: 11/06/2019 If this is an infectious diarrhea such as a pseudomembranous colitis from C. difficile we would not want to use any antidiarrheal agents. The Bentyl for crampy pain would be acceptable. We should have the results of your stool studies including the C. difficile within the next 12 hours. For the time being we will provide IV fluids and supportive care. 11/07/2019 Explained the role of the colon and motor absorption. We discussed adequate water intake after discharge. No antidiarrheal medications at this time. Diarrhea will improve over time. I did advance him to a regular diet. 11/08/2019 As above (7) Hyperglycemia Is this a current diagnosis for this admission?: Yes Plan: 11/06/2019 The serum glucose is slightly above the upper limit normal. This is clinically insignificant. There is no acute treatment necessary. We will monitor his serum chemistries and intervene if necessary. 11/07/2019 Glucose is normal (8) Hyponatremia Is this a current diagnosis for this admission?: Yes Plan: 11/06/2019 The serum sodium is minimally below the lower limit normal. This is likely from the diarrhea. It is not clinically significant. Will monitor with the laboratory studies. No acute treatment necessary as he will be getting IV fluids. 11/07/2019 Still just below the lower limit normal. Stable. Should correct when diarrhea stops. 11/08/2019 Serum sodium is now normal. (9) Hypokalemia Is this a current diagnosis for this admission?: Yes Plan: 11/07/2019 Likely from the diarrhea. Low-dose potassium supplement initiated. When the diarrhea stops he will no longer need the potassium supplement. 11/08/2019 Serum potassium is now normal. - Time Time Spent with patient: Less than 15 minutes Medications reviewed and adjusted accordingly: Yes Anticipated discharge: Home Within: within 24 hours
[2019-11-09] MEDS: VANCOMYCIN HCL INJ 500 MG VIAL PO SCH ×2 (03:55→09:08)
[2019-11-09] MEDS: HEPARIN SOD (PORCINE) 5,000 UNIT/ML 1 ML VIAL SUBCUT SCH (05:29)
[2019-11-09 08:02] VITALS: BP 128/78
[2019-11-09] MEDS: FAMOTIDINE 20 MG TABLET PO SCH (09:08)
[2019-11-09] MEDS: POTASSIUM CHLORIDE 10 MEQ TABLET.ER PO SCH (09:08)
[2019-11-09] MEDS: LACTOBACILLUS ACIDOPHILUS 250 MG TAB PO SCH (09:08)
--- NOTE | 2019-11-09 11:25 | PDOC DISCHARGE SUMMARY ---
Impression - Admit/DC Date/PCP Admission Date/Primary Care Provider: 11/06/19 15:06 [facility] Discharge Date: 11/09/19 - Discharge Diagnosis (1) C. difficile colitis Is this a current diagnosis for this admission?: Yes (2) Colitis Is this a current diagnosis for this admission?: Yes (3) Abdominal pain Is this a current diagnosis for this admission?: Yes (4) Leukocytosis Is this a current diagnosis for this admission?: Yes (5) Weight loss Is this a current diagnosis for this admission?: Yes (6) Diarrhea Is this a current diagnosis for this admission?: Yes (7) Hyperglycemia Is this a current diagnosis for this admission?: Yes (8) Hyponatremia Is this a current diagnosis for this admission?: Yes (9) Hypokalemia Is this a current diagnosis for this admission?: Yes - Additional Information Resuscitation Status: Full Code Discharge Diet: Regular, Other (Comments) - Avoid caffeine and spicy foods for 1 to 2 weeks Discharge Activity: Activity As Tolerated [facility]errals: [facility] [Primary [facility]] - Follow up as needed (PATIENT WILL MAKE OWN APPT. ) Prescriptions: Vancomycin HCl 250 mg PO QID 7 Days #21 capsule Home Medications: Lactobacillus Acidophilus [Bacid 250 mg Tablet] 500 mg PO BID tab 11/09/19 Vancomycin HCl 250 mg PO QID 7 Days #21 capsule 11/09/19 History of Present Illiness History of Present Illness: ERNIE SHORT is a 39 year old male with no significant past medical history who presents with abdominal pain and diarrhea. The patient is otherwise healthy. 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 He did receive a dog bite approximately 4 weeks ago. He was given clindamycin 300 mg and was experiencing some stomach discomfort and he did stop the medication early. There is no adverse effects and his wound is healed completely. Approximately 2 weeks ago he began having some abdominal discomfort. He went to a walk-in clinic and was told that it was constipation. He was given some laxatives and sent home. He states that his bowels did in fact respond to laxatives however for the last 2 weeks he has been having ongoing crampy pain and profuse diarrhea. It was originally normal in color and now is a greenish color and basically liquid. He does not think he has been drinking enough water. He denies having fever or chills. He did reports that in addition to the cramping he was having diaphoresis episodes. He did not report that there was any blood in his stool but he was having urgency. He does report weight loss. 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 He did not feel poorly at all until 2 weeks ago. In the emergency department he was afebrile with normal blood pressure. Normal oxygen saturation on room air. He is not tachycardic. White blood cell count is elevated with a left shift. Serum chemistries reveal serum sodium just under the lower limit of normal. No other clinically significant abnormalities. He is having ongoing liquid stool and crampy pain. He is experiencing abdominal tenderness mostly focused in the epigastric area. Imaging reveals pancolonic wall thickening with mild stranding in the pericolonic fat. Stool has been ordered for C. difficile, Gram stain and culture as well as white blood cells. He has received a dose of metronidazole and ciprofloxacin. He will be admitted to the hospitalist service. He will receive IV fluids. In addition to continuing the ciprofloxacin and metronidazole I have added oral vancomycin until results of the C. difficile tests are available. If these are negative I will discontinue the vancomycin. At this point I do not feel there is an acute need for surgical evaluation. Hospital Course Hospital Course: The patient was initially started on ciprofloxacin and metronidazole for a nonspecific colitis. C. difficile was tested and he was positive. This is from the antibiotics that he received several weeks ago for his dog bite. He was immediately started on oral vancomycin. He was on probiotics. He was also given famotidine 20 mg twice a day to limit acid reflux as well as Bentyl for crampy abdominal pain. With the oral vancomycin he is done quite well. His loose stools have decreased in frequency. His abdominal pain is better. He was discharged on oral vancomycin and I have suggested he continue the probiotics and he may continue the famotidine if he wishes. The antibiotics were sent to [facility]. Physical Exam Vital Signs: Temp Pulse Resp BP Pulse Ox 98.3 F 71 16 128/78 H 100 06//20 08:00 11/09/19 08:00 11/09/19 08:00 11/09/19 08:00 11/09/19 08:00 Intake & Output 11/08/19 11/09/19 11/10/19 06:59 06:59 06:59 Intake Total 2335 2286 Balance 2335 2286 Weight 78.8 kg 78.8 kg General appearance: PRESENT: no acute distress Respiratory exam: PRESENT: symmetrical, unlabored. ABSENT: clear to auscultation ashok, rales, rhonchi, tachypnea, wheezes Cardiovascular exam: PRESENT: RRR, +S1, +S2 GI/Abdominal exam: PRESENT: normal bowel sounds, soft. ABSENT: distended, tenderness Results Laboratory Results: WBC 14.7 10^3/uL (4.0-10.5) H 11/07/19 06:46 RBC 4.84 10^6/uL (4.35-5.55) 11/07/19 06:46 Hgb 14.5 g/dL (13.5-17.0) 11/07/19 06:46 Hct 41.9 % (37.9-51.0) 11/07/19 06:46 MCV 87 fl (80-97) 11/07/19 06:46 MCH 30.0 pg (27.0-33.4) 11/07/19 06:46 MCHC 34.7 g/dL (32.0-36.0) 11/07/19 06:46 RDW 13.4 % (11.5-14.0) 11/07/19 06:46 Plt Count 223 10^3/uL (150-450) 11/07/19 06:46 Lymph % (Auto) 15.1 % (13-45) 11/07/19 06:46 [place] % (Auto) 5.3 % (3-13) 11/07/19 06:46 Eos % (Auto) 1.5 % (0-6) 11/07/19 06:46 Baso % (Auto) 0.6 % (0-2) 11/07/19 06:46 Absolute Neuts (auto) 11.4 10^3/uL (1.7-8.2) H 11/07/19 06:46 Absolute Lymphs (auto) 2.2 10^3/uL (0.5-4.7) 11/07/19 06:46 Absolute Monos (auto) 0.8 10^3/uL (0.1-1.4) 11/07/19 06:46 Absolute Eos (auto) 0.2 10^3/uL (0.0-0.6) 11/07/19 06:46 Absolute Basos (auto) 0.1 10^3/uL (0.0-0.2) 11/07/19 06:46 Seg Neutrophils % 77.5 % (42-78) 11/07/19 06:46 ESR 8 mm/hr (0-15) 11/07/19 06:46 Sodium 138.1 mmol/L (137-145) 11/08/19 05:34 Potassium 3.9 mmol/L (3.6-5.0) 11/08/19 05:34 Chloride 108 mmol/L (98-107) H 11/08/19 05:34 Carbon Dioxide 25 mmol/L (22-30) 11/08/19 05:34 Anion Gap 5 (5-19) 11/08/19 05:34 BUN 8 mg/dL (7-20) 11/08/19 05:34 Creatinine 0.69 mg/dL (0.52-1.25) 11/08/19 05:34 Est GFR ( Amer) > 60 (>60) 11/08/19 05:34 Est GFR (MDRD) Non-Af > 60 (>60) 11/08/19 05:34 Glucose 93 mg/dL (75-110) 11/08/19 05:34 Calcium 8.1 mg/dL (8.4-10.2) L 11/08/19 05:34 Magnesium 2.1 mg/dL (1.6-2.3) 11/08/19 05:34 Total Bilirubin 0.9 mg/dL (0.2-1.3) 11/06/19 09:30 Direct Bilirubin 0.0 mg/dL (0.0-0.4) 11/06/19 09:30 Neonat Total Bilirubin Not Reportable 11/06/19 09:30 Neonat Direct Bilirubin Not Reportable 11/06/19 09:30 Neonat Indirect Bili Not Reportable 11/06/19 09:30 AST 36 U/L (17-59) 11/06/19 09:30 ALT 46 U/L (<50) 11/06/19 09:30 Alkaline Phosphatase 73 U/L (38-126) 11/06/19 09:30 Total Protein 6.9 g/dL (6.3-8.2) 11/06/19 09:30 Albumin 4.0 g/dL (3.5-5.0) 11/06/19 09:30 Lipase 59.1 U/L (23-300) 11/06/19 09:30 Urine Color KYLE 11/06/19 09:15 Urine Appearance SLIGHTLY-CLOUDY 11/06/19 09:15 Urine pH 5.0 (5.0-9.0) 11/06/19 09:15 Ur Specific [place] 1.034 11/06/19 09:15 Urine Protein 30 mg/dL (NEGATIVE) H 11/06/19 09:15 Urine Glucose (UA) NEGATIVE mg/dL (NEGATIVE) 11/06/19 09:15 Urine Ketones 20 mg/dL (NEGATIVE) H 11/06/19 09:15 Urine Blood NEGATIVE (NEGATIVE) 11/06/19 09:15 Urine Nitrite NEGATIVE (NEGATIVE) 11/06/19 09:15 Urine Bilirubin NEGATIVE (NEGATIVE) 11/06/19 09:15 Urine Urobilinogen 2.0 mg/dL (<2.0) H 11/06/19 09:15 Ur Leukocyte Esterase NEGATIVE (NEGATIVE) 11/06/19 09:15 Urine WBC (Auto) 2 /HPF 11/06/19 09:15 Urine RBC (Auto) 1 /HPF 11/06/19 09:15 Urine Mucus (Auto) MANY /LPF 11/06/19 09:15 Urine Ascorbic Acid NEGATIVE (NEGATIVE) 11/06/19 09:15 Stool for White Cells MANY H 11/06/19 16:14 Stl C. Difficile GDH Ag POSITIVE (NEGATIVE) 11/06/19 16:14 Stl C.difficile Tox A&B POSITIVE (NEGATIVE) 11/06/19 16:14 Impressions: Acute Abdomen Series 11/06/19 09:06 IMPRESSION: No acute cardiopulmonary disease. Nonobstructive bowel gas pattern. Abdomen/Pelvis CT 11/06/19 11:20 IMPRESSION: 1. Muse colonic wall thickening associated with mild stranding of the pericolonic fat and engorgement of the vasa recta. The findings is nonspecific and could represent an infectious, inflammatory or ischemic colitis. 2. No other intra-abdominal abnormality. Plan Health Concerns: Transmission of C. difficile infection Plan of Treatment: As above. Complete oral vancomycin at home with probiotics Prescription sent electronically to [facility] Goals: Complete resolution of C. difficile colitis Time Spent: Greater than 30 Minutes Stroke Is this a Stroke Patient?: No Acute Heart Failure - Is this a Heart Failure Patient?: No
[2019-11-09] MEDS ORDERED: PROMETHAZINE HCL INJ 25 MG/1 ML VIAL IV PRN (12:30)
== END 2019-11-09 12:36 | disposition home or self-care (01) ==
LOC: ER 08:42 → INTOOBSV 15:06 → EH 15:06 → 4N 16:54
PROVIDERS: ADMIT Hospitalist; ATTEND Hospitalist
DX: A04.72 Enterocolitis due to Clostridium difficile, not specified as recurrent (principal); D72.829 Elevated white blood cell count, unspecified; R63.4 Abnormal weight loss; R73.9 Hyperglycemia, unspecified; R10.84 Generalized abdominal pain; E87.1 Hypo-osmolality and hyponatremia; E87.6 Hypokalemia; Z87.891 Personal history of nicotine dependence
CPT/HCPCS: 99285; 96361; 96375; 96365; 36415 ×3; 87040; 87045; 89055; 87205; 83690; 83735 ×2; 85025 ×2; 85652; 80048 ×2; 80053; 81001; 87324; 87449; 74022; 74177; J1644 ×4; J3490 ×8; J1885 ×2; J2270; J3370 ×4; J7030; J7120 ×3; J0744

== ENCOUNTER 2019-11-21 04:06 | Emergency (ER) | payer OTHER ==
[2019-11-21] MEDS ORDERED: NORMAL SALINE 1000 ML 1,000 ML IV ONE ×2 (04:59→06:11)
[2019-11-21] MEDS ORDERED: ONDANSETRON HCL INJ/PF 4 MG/2 ML SDV IV ONE (04:59)
--- NOTE | 2019-11-21 05:05 | ER Document Report ---
ED General - General Chief Complaint: Diarrhea Stated Complaint: ABDOMINAL PAIN [facility] Care Provider: [facility] [Primary [facility] Provider] - Follow up as needed Notes: Patient is a 39-year-old male with a recent past medical history of C. difficile colitis who was admitted to the hospital on November 06, 2019 and discharged on November 09, 2019 after diagnosis of C. difficile colitis. The patient was bitten by dog and was placed on clindamycin subsequently resulting in the C. difficile infection. Patient was treated here with IV IV and p.o. medications and sent home on a course of oral vancomycin. Patient states that he finished all the medications and was well for about a week. He states beginning about 3 days ago he started to have diarrhea again. He states that day it was about 5 episodes and yesterday and today he has had about 7 episodes per day. He states it is watery and yellow. Denies any specific foul or sweet smell. States this feels similar to the C. difficile infection. He denies any overt abdominal pain but admits to a "warm" sensation in the epigastric region. He admits to some mild infrequent nausea associated but denies any vomiting. He did also denies any constipation which he notes he did have with the prior bout initially. He denies any fever or recent travel. Denies any known exposures to contaminated food or water sources. Denies any new antibiotics or visits to other medical clinics. No urinary complaints. No chest pain or shortness of breath. - Related Data Allergies/Adverse Reactions: Penicillins Allergy (Verified 11/06/19 09:05) Home Medications: probiotics Past Medical History - Social History Smoking Status: Never Smoker Frequency of alcohol use: None Drug Abuse: None Family History: Reviewed & Not Pertinent, DM Patient has homicidal ideation: No Psychiatric Medical History: Denies: Hx Depression Review of Systems - Review of Systems Gastrointestinal: Diarrhea -: Yes All other systems reviewed and negative Physical Exam - Vital signs Vitals: Temp Pulse Resp BP Pulse Ox 98.8 F 116 H 16 134/81 H 100 11/21/19 04:10 11/21/19 04:10 11/21/19 04:10 11/21/19 04:10 11/21/19 04:10 - General General appearance: Appears well, Alert In distress: None - HEENT Head: Normocephalic, Atraumatic Eyes: Normal Conjunctiva: Normal Extraocular movements intact: Yes Mucous membranes: Dry Neck: Supple - Respiratory Respiratory status: No respiratory distress Chest status: Nontender Breath sounds: Normal Chest palpation: Normal - Cardiovascular Rhythm: Tachycardia Heart sounds: Normal auscultation Murmur: No - Abdominal Inspection: Normal Distension: No distension Bowel sounds: Normal Tenderness: Nontender Organomegaly: No organomegaly - Neurological Neuro grossly intact: Yes Cognition: Normal Orientation: AAOx4 - Psychological Associated symptoms: Normal affect, Normal mood - Skin Skin Temperature: Warm Skin Moisture: Dry Skin Color: Normal Course - Re-evaluation Re-evalutation: 11/21/19 08:06 Patient with an ongoing leukocytosis. He is a 2 L normal saline has tachycardia has improved slightly however he is still mildly tachycardic in the low 1 teens to 110s. The patient is nontoxic in appearance. He was positive again for C. difficile. I discussed with Dr. Infante who agreed with discussion about admission. I discussed this with the patient and offered admission. He advised he rather trial oral vancomycin outpatient. We discussed the treatment plan for first recurrence which is what we will institute. We discussed risks of not being admitted to the hospital including not limited to decompensation, worsening, or permanent neurological disability. He verbalized understood and agreed. We discussed dietary restrictions, treatment regimen and hygiene. I advised he have a very low threshold for return to the hospital should he feel like he is not improving or worsening. We discussed the importance of outpatient follow-up closely and advised that he return here or any ER immediately with any new, persistent or worsening symptoms. He verbalized understood and agreed. - Vital Signs Vital signs: Temp Pulse Resp BP Pulse Ox 98.8 F 116 H 16 134/81 H 95 11/21/19 04:11 11/21/19 04:10 11/21/19 04:10 11/21/19 04:10 11/21/19 07:00 - Laboratory Result Diagrams: 11/21/19 04:47 11/21/19 04:47 Laboratory results interpreted by me: 11/21/19 11/21/19 11/21/19 04:47 04:47 04:47 WBC 24.3 H Seg Neuts % (Manual) 83 H Band Neutrophils % 6 H Lymphocytes % (Manual) 4 L Abs Neuts (Manual) 21.6 H Abs Monocytes (Manual) 1.7 H Sodium 132.3 L Urine Protein 100 H Urine Ketones 80 H Discharge - Discharge Clinical Impression: C. difficile colitis Condition: Stable Disposition: HOME, SELF-CARE Instructions: C. (Clostridium) Difficile Infection ([facility]) Additional Instructions: Follow-up with your regular doctor in 2 to 3 days for reevaluation. Return here or any ER immediately with any new, persistent or worsening symptoms. Prescriptions: Hydrocodone/Acetaminophen [[place] 5-325 mg Tablet] 1 tab PO Q6 PRN #12 tablet PRN Reason: Vancomycin HCl 125 mg PO ASDIR PRN #93 capsule PRN Reason: Forms: Return to Work Referrals: [facility] [Primary Care Provider] - Follow up as needed
[2019-11-21 05:11] LABS: HEMATOCRIT 47.3 % (37.9-51.0); HEMOGLOBIN 15.9 g/dL (13.5-17.0); MEAN CORPUSCULAR HEMOGLOBIN 29.5 pg (27.0-33.4); MEAN CORPUSCULAR HGB CONC 33.7 g/dL (32.0-36.0); MEAN CORPUSCULAR VOLUME 88 fl (80-97); PLATELET COUNT 293 10^3/uL (150-450); RED BLOOD COUNT 5.39 10^6/uL (4.35-5.55); RED CELL DISTRIBUTION WIDTH 13.4 % (11.5-14.0); WHITE BLOOD COUNT 24.3 10^3/uL (4.0-10.5)
[2019-11-21 05:20] LABS: ALKALINE PHOSPHATASE 73 U/L (38-126); ANION GAP 9 (5-19); ASPARTATE AMINO TRANSFERASE 28 U/L (17-59); BILIRUBIN,TOTAL 1.3 mg/dL (0.2-1.3); BLOOD UREA NITROGEN 14 mg/dL (7-20); CALCIUM 8.8 mg/dL (8.4-10.2); CARBON DIOXIDE 24 mmol/L (22-30); CHLORIDE 99 mmol/L (98-107); GLUCOSE 104 mg/dL (75-110); POTASSIUM 3.9 mmol/L (3.6-5.0); TOTAL PROTEIN 6.9 g/dL (6.3-8.2)
[2019-11-21 05:29] LABS: ABSOLUTE MONOCYTES # (MANUAL) 1.7 10^3/uL (0.1-1.4); BAND NEUTROPHILS % (MANUAL) 6 % (3-5); BASOPHILS % (MANUAL) 0 % (0-2); EOSINOPHILS % (MANUAL) 0 % (0-6); LYMPHOCYTES % (MANUAL) 4 % (13-45); MONOCYTES % (MANUAL) 7 % (3-13); SEGMENTED NEUTROPHILS % (MAN) 83 % (42-78); TOTAL CELLS COUNTED 100
[2019-11-21 05:30] LABS: APPEARANCE,URINE SLIGHTLY-CLOUDY; BILIRUBIN,URINE NEGATIVE (NEGATIVE); COLOR,URINE AMBER; GLUCOSE, URINE NEGATIVE (NEGATIVE); KETONES,URINE 80 mg/dL (NEGATIVE); LEUKOCYTE ESTERASE,URINE NEGATIVE (NEGATIVE); NITRITE,URINE NEGATIVE (NEGATIVE); PLATELET COMMENT ADEQUATE; PROTEIN,URINE 100 mg/dL (NEGATIVE); RBC MORPHOLOGY COMMENT NORMO-CYTIC/CHROMIC; UROBILINOGEN,URINE NEGATIVE mg/dL (<2.0)
[2019-11-21] MEDS ORDERED: MORPHINE SULFATE 10 MG/ML INJ IV ONE (06:11)
[2019-11-21] MEDS ORDERED: KETOROLAC TROMETHAMINE INJ/PF 30 MG/1 ML SDV IV ONE (06:11)
[2019-11-21] MEDS ORDERED: VANCOMYCIN HCL INJ 500 MG VIAL PO ONE (07:14)
[2019-11-21 07:42] LABS: C DIFFICILE GDH POSITIVE (NEGATIVE)
[2019-11-21 08:13] VITALS: BP 119/91
== END 2019-11-21 09:02 | disposition home or self-care (01) ==
LOC: ER 04:06
DX: A04.72 Enterocolitis due to Clostridium difficile, not specified as recurrent (principal); R00.0 Tachycardia, unspecified; R19.7 Diarrhea, unspecified; R10.9 Unspecified abdominal pain; W54.0XXD Bitten by dog, subsequent encounter
CPT/HCPCS: 99284; 96361; 96374; 36415; 87045; 87205; 87209; 83690; 87177; 85025; 80053; 81001; 87324; 87449; J1885; J2270; J3370; J7030